=== PATIENT | female | born 1960 | race Caucasian/White ===

== ENCOUNTER 2016-06-26 13:31 | Emergency (ER) | payer OTHER ==
[2016-06-26 13:43] VITALS: BP 130/67; PULSE 84; TEMP 99.4; BMI 25.7
[2016-06-26] MEDS ORDERED: IBUPROFEN 600 MG TABLET (FP) PO ONE ×2 (15:22→15:23)
--- NOTE | 2016-06-26 15:28 | PDOC ---
History of Present Illness - General Chief Complaint: Sore Throat Stated Complaint: THROAT PAIN Time Seen by Provider: 06/26/16 15:13 History Source: Patient Exam Limitations: No Limitations - History of Present Illness Initial Comments: 06/26/16 15:23 Chief complaint: Throat pain Patient is a 55-year-old female with a history of hyperlipidemia and hypertension who states that she has sore throat for 2 days, states she had 103 fever yesterday and felt very weak. Difficulty eating but she can drink and swallow pills. Patient last took Tylenol at 5:30 this morning and has a temperature of 99.4 and a heart rate of 84. No cough or runny nose GENERAL/CONSTITUTIONAL: +fever, weakness. :dizziness HEAD, EYES, EARS, NOSE AND THROAT: No change in vision. No ear pain or discharge. +sore throat. CARDIOVASCULAR: No chest pain RESPIRATORY: No shortness of breath or cough GASTROINTESTINAL: No pain, nausea, vomiting, diarrhea or constipation GENITOURINARY: No dysuria MUSCULOSKELETAL: No neck or back pain SKIN: No rash NEUROLOGIC: No headache, vertigo, loss of consciousness, or loss of sensation. GENERAL: The patient is awake, alert, and fully oriented, in no acute distress. HEAD: Normal with no signs of trauma. EYES: Pupils equal, round and reactive to light, sclera anicteric, conjunctiva clear. ENT: pharynx: +erythema, no exudate, uvula midline, no signs of abscess NECK: supple CHEST: clear, nontender, rr ABD: soft, nontender EXTREMITIES: Normal range of motion, no edema. NEUROLOGICAL: Normal speech, normal gait. SKIN: Warm, Dry Past History - Past Medical History Allergies/Adverse Reactions: Allergies Allergy/AdvReac Type Severity Reaction Status Date / Time No Known Allergies Allergy Verified 06/26/16 13:43 Home Medications: Ambulatory Orders Citalopram Hydrobromide [Celexa -] 20 mg PO DAILY 05/21/14 Loratadine [Claritin -] 10 mg PO DAILY 05/21/14 Lovastatin 20 mg PO DAILY 05/21/14 Metoprolol Succinate [Toprol Xl -] 25 mg PO BID 01/06/15 Amoxicillin - [Amoxicillin 875mg Tablet -] 875 mg PO BID #20 tablet 06/26/16 Atorvastatin Calcium 20 mg PO ASDIR 06/26/16 HTN: Yes Hypercholesterolemia: Yes Suicide Attempt (Hx): No - Immunization History Immunization Up to Date: Yes - Psycho/Social/Smoking Cessation Hx Anxiety: No Suicidal Ideation: No Smoking History: Never smoked Have you smoked in the past 12 months: No Number of Cigarettes Smoked Daily: 0 Hx Alcohol Use: No Drug/Substance Use Hx: No Substance Use Type: None *Physical Exam - Vital Signs Last Vital Signs Temp Pulse Resp BP Pulse Ox 99.4 F 84 20 130/67 100 06/26/16 13:40 06/26/16 13:40 06/26/16 13:40 06/26/16 13:40 06/26/16 13:40 Medical Decision Making - Medical Decision Making 06/26/16 15:26 Patient with sore throat, mild erythema, fever yesterday, no fever now, we will treat given clinical picture, no signs of abscess patient has normal voice does not appeal acutely ill. Discussed issues, findings, results, applicable medications and treatments and follow-up. All these were understood and all questions were answered *DC/Admit/Observation/Transfer Diagnosis at time of Disposition: Pharyngitis Qualifiers: Pharyngitis/tonsillitis etiology: unspecified etiology Qualified Code(s): J02.9 - Acute pharyngitis, unspecified - Discharge Dispostion Disposition: HOME Condition at time of disposition: Stable Admit: No - Prescriptions Prescriptions: Amoxicillin - [Amoxicillin 875mg Tablet -] 875 mg PO BID #20 tablet - Referrals Referrals: Mike Shepard MD [Primary Care Provider] - Kyle Dominguez MD [Staff Physician] - - Patient Instructions Printed Discharge Instructions: DI for Pharyngitis/Tonsillopharyngitis -- Adult Additional Instructions: Drink 2-3 L of water daily Take the amoxicillin one tablet every 12 hours for 10 days, make sure you take it for the time clerk do not stop an early even if you feel better Take Tylenol 650 mg every 4 hours or Motrin 600 mg every 6 hours for fever and pain Return to the nearest ER if short of breath, unable to swallow or feeling sicker Followup with your doctor in one to 2 days
== END 2016-06-26 15:32 | disposition home or self-care (01) ==
LOC: JERFT 13:31
DX: J02.9 Acute pharyngitis, unspecified (principal)
CPT/HCPCS: 99281-25

== ENCOUNTER 2017-10-07 09:12 | Emergency (ER) | payer OTHER ==
[2017-10-07 09:17] VITALS: BP 137/88; PULSE 67; TEMP 99; BMI 27.4
--- NOTE | 2017-10-07 09:36 | PDOC ---
History of Present Illness - General Chief Complaint: Eye Problem Stated Complaint: EYE PROBLEM Time Seen by Provider: 10/07/17 09:32 History Source: Patient Exam Limitations: Clinical Condition - History of Present Illness Initial Comments: 10/07/17 09:37 Patient with history of hypertension present with complain of redness and pain to left eye upon wake this morning. Patient denies trauma or injury to left eye. Patient wear corrective glasses but no contact lenses. She reported she was seen by ophthalmology 2 years ago and was told there was some sort of leakage inside the eye and had no follow-up care. Patient reported mild blurry vision. Patient also report 5 days history of intermittent headaches. Denies any other symptoms Timing/Duration: 24 hours Past History - Past Medical History Allergies/Adverse Reactions: Allergies Allergy/AdvReac Type Severity Reaction Status Date / Time No Known Allergies Allergy Verified 10/07/17 09:17 Home Medications: Ambulatory Orders Citalopram Hydrobromide [Celexa -] 20 mg PO DAILY 05/21/14 Loratadine [Claritin -] 10 mg PO DAILY 05/21/14 Lovastatin 20 mg PO DAILY 05/21/14 Metoprolol Succinate [Toprol Xl -] 25 mg PO BID 01/06/15 Amoxicillin - [Amoxicillin 875mg Tablet -] 875 mg PO BID #20 tablet 06/26/16 Atorvastatin Calcium 20 mg PO ASDIR 06/26/16 Ofloxacin 0.3% Ophth Soln [Ocuflox -] 2 drop OP Q6H 5 Days #1 bottle 10/07/17 Sumatriptan Succinate [Imitrex] 25 mg PO Q8H PRN #12 tablet 10/07/17 COPD: No HTN: Yes Hypercholesterolemia: Yes - Immunization History Immunization Up to Date: Yes - Suicide/Smoking/Psychosocial Hx Smoking History: Never smoked Have you smoked in the past 12 months: No Number of Cigarettes Smoked Daily: 0 Hx Alcohol Use: No Drug/Substance Use Hx: No Substance Use Type: None Review of Systems - Review of Systems Able to Perform ROS?: Yes Is the patient limited [place] proficient: No Constitutional: No: Chills, Diaphoresis, Fever, Loss of Appetite, Malaise, Night Sweats, Weakness, Weight Stable, Unintentional Wgt. Loss, Unexplained wgt Loss, Other HEENTM: Yes: Symptoms Reported, See HPI, Eye Pain (left eye), Blurred Vision ( left eye). No: Tearing, Recent change in vision, Double Vision, Cataracts, Ear Pain, Ocular Prothesis, Ear Discharge, Nose Pain, Nose Congestion, Tinnitus, Nose Bleeding, Hearing Loss, Throat Pain, Throat Swelling, Mouth Pain, Dental Problems, Difficulty Swallowing, Mouth Swelling, Other Respiratory: No: Cough, Orthopnea, Shortness of Breath, SOB with Exertion, SOB at Rest, Stridor, Wheezing, Productive cough, Hemoptysis, Other Cardiac (ROS): No: Chest Pain, Edema, Irregular Heart Rate, Lightheadedness, Palpitations, Syncope, Chest Tightness, Other ABD/GI: No: Abdominal Distended, Abd. Pain w/ defecation, Blood Streaked Bowels , Constipated, Diarrhea, Difficulty Swallowing, Nausea, Poor Appetite, Poor Fluid Intake, Rectal Bleeding, Vomiting, Indigestion, Abdominal cramping, Tarry Stools, Other Musculoskeletal: No: Back Pain, Gout, Joint Pain, Joint Swelling, Muscle Pain, Muscle Weakness, Neck Pain, Joint Stiffness, Other Integumentary: No: Bruising, Change in Color, Change in Hair/Nails, Dryness, Erythema, Flushing, Lesions, Lumps, Pallor, Pruritus, Rash, Sweating, Other All Other Systems: Reviewed and Negative *Physical Exam - Vital Signs Last Vital Signs Temp Pulse Resp BP Pulse Ox 99 F 67 18 137/88 99 10/07/17 09:14 10/07/17 09:14 10/07/17 09:14 10/07/17 09:14 10/07/17 09:14 - Physical Exam Comments: 10/07/17 09:40 GENERAL: Well developed, well nourished. Awake and alert. No acute distress. HEENT: Moderately injected left conjunctiva. Right conjunctiva normal.Normocephalic, atraumatic. PERRLA, EOMI. Sclera are non-icteric. Moist mucous membranes. Oropharynx is clear. NECK: Supple. Full ROM. No JVD. Carotid pulses 2+ and symmetric, without bruits. No thyromegaly. No lymphadenopathy. CARDIOVASCULAR: Regular rate and rhythm. No murmurs, rubs, or gallops. Distal pulses are 2+ and symmetric. PULMONARY: No evidence of respiratory distress. Lungs clear to auscultation bilaterally. No wheezing, rales or rhonchi. ABDOMINAL: Soft. Non-tender. Non-distended. No rebound or guarding. No organomegaly. Normoactive bowel sounds. MUSCULOSKELETAL Normal range of motion at all joints. No bony deformities or tenderness. No CVA tenderness. EXTREMITIES: No cyanosis. No clubbing. No edema. No calf tenderness. SKIN: Warm and dry. Normal capillary refill. No rashes. No jaundice. NEUROLOGICAL: Alert, awake, appropriate. Cranial nerves 2-12 intact. No deficits to light touch and temperature in face, upper extremities and lower extremities. No motor deficits in the in face, upper extremities and lower extremities. Normoreflexic in the upper and lower extremities. Normal speech. Toes are down- going bilaterally. Gait is normal without ataxia. PSYCHIATRIC: Cooperative. Good eye contact. Appropriate mood and affect. General Appearance: Yes: Nourished, Appropriately Dressed. No: Apparent Distress Medical Decision Making - Medical Decision Making 10/07/17 09:41 Patient with history of hypertension on meds present with complain of redness and pain in left eye with this morning. Patient also with complain of intermittent headache. Exam shows moderate injected left conjunctiva. Patient will be treated for conjunctivitis with cluster headache with ophthalmology follow-up *DC/Admit/Observation/Transfer Diagnosis at time of Disposition: Cluster headache Qualifiers: Headache chronicity pattern: episodic headache Intractability: not intractable Qualified Code(s): G44.019 - Episodic cluster headache, not intractable Conjunctivitis Qualifiers: Conjunctivitis type: acute Acute conjunctivitis type: unspecified Laterality: left Qualified Code(s): H10.32 - Unspecified acute conjunctivitis, left eye - Discharge Dispostion Disposition: HOME Condition at time of disposition: Stable - Prescriptions Prescriptions: Ofloxacin 0.3% Ophth Soln [Ocuflox -] 2 drop OP Q6H 5 Days #1 bottle Sumatriptan Succinate [Imitrex] 25 mg PO Q8H PRN #12 tablet PRN Reason: eye pain and headache - Referrals Referrals: Mike Shepard MD [Primary Care Provider] - Paty Ashraf MD [Staff Physician] - - Patient Instructions Printed Discharge Instructions: Cluster Headache Additional Instructions: Take medications as prescribed. Follow-up with ophthalmology as soon as possible - Post Discharge Activity
== END 2017-10-07 09:38 | disposition home or self-care (01) ==
LOC: JERFT 09:12
DX: G44.019 Episodic cluster headache, not intractable (principal); H10.32 Unspecified acute conjunctivitis, left eye
CPT/HCPCS: 99281-25

== ENCOUNTER 2018-03-05 18:54 | Emergency (ER) | payer OTHER ==
--- NOTE | 2018-03-05 19:01 | PDOC ---
Rapid Medical Evaluation Time Seen by Provider: 03/05/18 18:57 Medical Evaluation: Allergies Allergy/AdvReac Type Severity Reaction Status Date / Time No Known Allergies Allergy Verified 10/07/17 09:17 03/05/18 18:57 I have performed a brief in-person evaluation of the patient. The patient presents with a chief complaint of: s/p fall in kitchen, tripped over grandson. Used left arm to break fall. Pertinent physical exam findings. NAD even and unlabored breathing left wrist and hand deformity I have ordered the following. xray and analgesia The patient will proceed to the ED for further evaluation.
[2018-03-05 19:04] VITALS: BMI 26.6
[2018-03-05] MEDS ORDERED: morphine CARPU-JECT 2 MG/1 ML DISP.SYRIN IVPUSH ONE (19:04)
[2018-03-05] MEDS ORDERED: morphine CARPU-JECT 2 MG/1 ML DISP.SYRIN IM ONE (19:07)
[2018-03-05] MEDS ORDERED: MORPHINE SULFATE 2 MG/ML VIAL ONE (19:09)
--- NOTE | 2018-03-05 19:10 | PDOC ---
History of Present Illness - General Chief Complaint: Pain, Acute Stated Complaint: L HAND FRACTURE Time Seen by Provider: 03/05/18 18:57 - History of Present Illness Initial Comments: 03/05/18 19:06 Ms. Miller is a 57 yo female w/ pmh of osteopenia, HTN, and HLD who presents with arm pain after mechanical fall when she tripped over grandson earlier today in her kitchen and used left arm to break fall. Patient currently experiencing significant wrist pain w/out radiation. Reports pain is localized to wrist only. Given 2mg morphine in fast track. Denies any other symptoms. The patient denies chest pain, shortness of breath, headache and dizziness. Denies fever, chills, nausea, vomit, diarrhea and constipation. Denies dysuria, frequency, urgency and hematuria. Past History - Past Medical History Allergies/Adverse Reactions: Allergies Allergy/AdvReac Type Severity Reaction Status Date / Time No Known Allergies Allergy Verified 03/05/18 19:00 Home Medications: Ambulatory Orders Citalopram Hydrobromide [Celexa -] 20 mg PO DAILY 05/21/14 Loratadine [Claritin -] 10 mg PO DAILY 05/21/14 Lovastatin 20 mg PO DAILY 05/21/14 Metoprolol Succinate [Toprol Xl -] 25 mg PO BID 01/06/15 Atorvastatin Calcium 20 mg PO ASDIR 06/26/16 Ofloxacin 0.3% Ophth Soln [Ocuflox -] 2 drop OP Q6H 5 Days #1 bottle 10/07/17 Sumatriptan Succinate [Imitrex] 25 mg PO Q8H PRN #12 tablet 10/07/17 COPD: No HTN: Yes Hypercholesterolemia: Yes - Immunization History Immunization Up to Date: Yes - Suicide/Smoking/Psychosocial Hx Smoking History: Unknown if ever smoked Have you smoked in the past 12 months: No Number of Cigarettes Smoked Daily: 0 Hx Alcohol Use: No Drug/Substance Use Hx: No Substance Use Type: None Review of Systems - Review of Systems Comments:: 03/05/18 19:09 GENERAL/CONSTITUTIONAL: No fever or chills. No weakness. HEAD, EYES, EARS, NOSE AND THROAT: No change in vision. No ear pain or discharge. No sore throat. CARDIOVASCULAR: No chest pain or shortness of breath RESPIRATORY: No cough, wheezing, or hemoptysis. GASTROINTESTINAL: No nausea, vomiting, diarrhea or constipation. GENITOURINARY: No dysuria, frequency, or change in urination. MUSCULOSKELETAL: +Left wrist pain as described. SKIN: No rash NEUROLOGIC: No headache, vertigo, loss of consciousness, or change in strength/ sensation. ENDOCRINE: No increased thirst. No abnormal weight change HEMATOLOGIC/LYMPHATIC: No anemia, easy bleeding, or history of blood clots. ALLERGIC/IMMUNOLOGIC: No hives or skin allergy. *Physical Exam - Vital Signs Last Vital Signs Temp Pulse Resp BP Pulse Ox 112 H 20 00/00 L 99 03/05/18 19:02 03/05/18 19:02 03/05/18 19:02 03/05/18 19:02 - Physical Exam Comments: 03/05/18 19:09 GENERAL: Awake, alert, and fully oriented, in no acute distress HEAD: No signs of trauma, normocephalic, atraumatic EYES: PERRLA, EOMI, sclera anicteric, conjunctiva clear ENT: Auricles normal inspection, hearing grossly normal, nares patent, oropharynx clear without exudates. Moist mucosa NECK: Normal ROM, supple, no lymphadenopathy, JVD, or masses LUNGS: No distress, speaks full sentences, clear to auscultation bilaterally HEART: Regular rate and rhythm, normal S1 and S2, no murmurs, rubs or gallops, peripheral pulses normal and equal bilaterally. ABDOMEN: Soft, nontender, normoactive bowel sounds. No guarding, no rebound. No masses EXTREMITIES: +Left wrist TTP and swollen. Neurovascularly intact. NEUROLOGICAL: Cranial nerves II through XII grossly intact. Normal speech, normal gait, no focal sensorimotor deficits SKIN: Warm, Dry, normal turgor, no rashes or lesions noted. Moderate Sedation - Procedure Monitoring Vital Signs: Procedure Monitoring Vital Signs Temperature Pulse Rate 112 H 03/05/18 19:02 Respiratory Rate 20 03/05/18 19:02 Blood Pressure 00/00 L 03/05/18 19:02 O2 Sat by Pulse Oximetry (%) 99 03/05/18 19:02 Procedures - Joint Reduction Left Joint Reduction Site: left: Radial Head Pre-Procedure NV Exam: normal Conscious Sedation: No Reduction Attempts: 1 Anesthetic: 2% Lidocaine Amount (mL): 3 Procedure: Traction Counter Traction Post-Procedure NV Exam: normal Complications: No Post Joint Reduction Film: joint reduced Splint: Yes Immobilized: Yes Medical Decision Making - Medical Decision Making 03/05/18 19:29 Ms. Miller is a 57 yo female w/ pmh as described who presents for evaluation of symptoms concerning for fracture vs. sprain. XR confirmed radial head fracture. Neurovascularly intact at this time. Will reduce and re-examine with plain films with likely outpatient orthopedic f/u. 03/05/18 19:58 Patient fracture reduced w/out difficulty using 3ml 2% Lidocaine for nerve block and traction. Patient neurovasuclarly intact following procedure. No complications. Pain improved. Repeat films ordered. 03/05/18 20:09 Radius re-approximated successfully on repeat films. Will discharge with ortho follow-up. Patient verbalized understanding and will comply. *DC/Admit/Observation/Transfer Diagnosis at time of Disposition: Radius fracture Qualifiers: Encounter type: initial encounter Radius location: neck Fracture type: closed Fracture alignment: displaced Laterality: left Qualified Code(s): S52.132A - Displaced fracture of neck of left radius, initial encounter for closed fracture - Discharge Dispostion Disposition: HOME - Referrals Referrals: Norberto Velazquez MD [Staff Physician] - - Patient Instructions Printed Discharge Instructions: DI for Distal Radius Fracture Additional Instructions: You were evaluated today in the ER after your fall and found to have a fracture of your radius on Xray. Your fracture was reduced and a splint was applied. Please follow-up with orthopedics using attached information. Return to ER if any fever, chills, increase in pain not controllable with over the counter motrin or tylenol, or other concerning symptoms. - Post Discharge Activity
[2018-03-05] MEDS ORDERED: LIDOCAINE HCL 2% (50ML VIAL) SQ ONE (19:19)
[2018-03-05] MEDS ORDERED: LIDOCAINE HCL 2% (20ML MULTI-DOSE VIAL) NR ONE (19:24)
--- NOTE | 2018-03-05 19:33 | PDOC ---
Attending Attestation - HPI HPI: 03/05/18 19:55 The patient is a 57 year old female with a past medical history of hypertension and hyperlipidemia who presents to the emergency department for evaluation of sudden onset left wrist pain s/p mechanical fall. Patient reports moderate left wrist pain after tripping over her grandson and landing on her outstretched left arm. She denies head strike and loss of consciousness. Patient denies use of blood thinners. She denies any proceeding symptoms, chest pain, or shortness of breath. - Physicial Exam PE: I agree with the findings of the resident's physical exam. - Medical Decision Making Documentation prepared by Tyler Munguia, acting as medical claims analyst for Melinda Lawrence DO. <Tyler Munguia - Last Filed: 03/05/18 19:55> - Resident Resident Name: Franck Oviedo - ED Attending Attestation I have performed the following: I have examined & evaluated the patient, The case was reviewed & discussed with the resident, I agree w/resident's findings & plan - Medical Decision Making 03/05/18 20:01 57-year-old female status post mechanical fall with sudden onset of pain to the left wrist X-rays were consistent with impacted and displaced distal radius fracture Local infiltration anesthesia as well as closed reduction with traction performed by the resident under my supervision Patient neurovascularly intact postprocedure, volar splint placed and postreduction films obtained Plan for discharge home with prompt outpatient orthopedic follow-up <Melinda Lawrence - Last Filed: 03/05/18 20:02>
[2018-03-05 20:26] VITALS: BP 133/85; PULSE 77; TEMP 98
== END 2018-03-05 20:48 | disposition home or self-care (01) ==
LOC: JER 18:54
PROC: 3E023NZ Introduction of Analgesics, Hypnotics, Sedatives into Muscle, Percutaneous Approach (ICD-10-PCS; principal; 2018-03-05)
PROC: 0PSJXZZ Reposition Left Radius, External Approach (ICD-10-PCS; 2018-03-05)
PROC: 0PSLXZZ Reposition Left Ulna, External Approach (ICD-10-PCS; 2018-03-05)
PROC: 2W3DX1Z Immobilization of Left Lower Arm using Splint (ICD-10-PCS; 2018-03-05)
DX: S52.592A Other fractures of lower end of left radius, initial encounter for closed fracture (principal); S52.612A Displaced fracture of left ulna styloid process, initial encounter for closed fracture; W03.XXXA Other fall on same level due to collision with another person, initial encounter; Y93.89 Activity, other specified; Y92.030 Kitchen in apartment as the place of occurrence of the external cause; Y99.8 Other external cause status; E78.5 Hyperlipidemia, unspecified
CPT/HCPCS: 25605; 29125; 73090-TC-LT-FY; 73110-TC-LR-FY; 73130-TC-LT-FY; 96372; 99282-25

== ENCOUNTER 2018-03-07 11:30 | Emergency (ER) | payer OTHER ==
[2018-03-07 11:47] VITALS: BP 145/89; PULSE 60; TEMP 98.1; BMI 27.6
--- NOTE | 2018-03-07 12:19 | PDOC ---
History of Present Illness - General Chief Complaint: Revisit,Wound Recheck Stated Complaint: LEFT HAND INJURY Time Seen by Provider: 03/07/18 12:17 History Source: Patient Exam Limitations: No Limitations - History of Present Illness Initial Comments: 03/07/18 13:10 Patient patient is a 57-year-old female who presents to the ER for evaluation of her left arm splint. Patient was seen in our emergency department on 03/05/17 under the name Angela Zach. She was diagnosed with a left arm fracture and had a splint placed. Today she states that this point feels very tight and she has numbness and tingling to her first 3 fingers. Denies pain to the forearm, weakness to the extremity, and fever. Past History - Travel Traveled outside of the country in the last 30 days: No Close contact w/someone who was outside of country & ill: No - Past Medical History Allergies/Adverse Reactions: Allergies Allergy/AdvReac Type Severity Reaction Status Date / Time rodriguez Allergy Verified 03/07/18 11:47 Home Medications: Ambulatory Orders Citalopram Hydrobromide [Celexa -] 10 mg PO DAILY 03/07/18 Metoprolol Succinate 25 mg PO ASDIR 03/07/18 Ondansetron [Zofran Odt -] 4 mg SL TID #10 od.tablet 03/07/18 Oxycodone HCl/Acetaminophen [Percocet 5-325 mg Tablet] 1 tab PO Q6H PRN #15 tablet MDD 4 03/07/18 COPD: No CHF: No HTN: Yes - Immunization History Immunization Up to Date: No - Suicide/Smoking/Psychosocial Hx Smoking History: Never smoked Have you smoked in the past 12 months: No Information on smoking cessation initiated: No Hx Alcohol Use: No Drug/Substance Use Hx: No Review of Systems - Review of Systems Able to Perform ROS?: Yes Comments:: 03/07/18 12:18 CONSTITUTIONAL: Absent: fever, chills, diaphoresis, generalized weakness, malaise, loss of appetite HEENT: Absent: rhinorrhea, nasal congestion, throat pain, throat swelling, difficulty swallowing, mouth swelling, ear pain, eye pain, visual Changes CARDIOVASCULAR: Absent: chest pain, loss of consciousness, palpitations, irregular heart rate, peripheral edema RESPIRATORY: Absent: cough, shortness of breath, dyspnea with exertion, orthopnea, wheezing, stridor, hemoptysis GASTROINTESTINAL: Absent: abdominal pain, abdominal distension, nausea, vomiting, diarrhea, constipation, melena, hematochezia GENITOURINARY: Absent: dysuria, frequency, urgency, hesitancy, hematuria, flank pain, genital pain MUSCULOSKELETAL: Present: L arm pain with associated numbness to fingers Absent: myalgia, arthralgia, joint swelling SKIN: Absent: rash, itching, pallor HEMATOLOGIC/IMMUNOLOGIC: Absent: easy bleeding, easy bruising, lymphadenopathy, frequent infections ENDOCRINE: Absent: unexplained weight gain, unexplained weight loss, heat intolerance, cold intolerance NEUROLOGIC: Absent: headache, focal weakness or paresthesias, dizziness, unsteady gait, seizure, mental status changes, bladder or bowel incontinence PSYCHIATRIC: Absent: anxiety, depression, suicidal or homicidal ideation, hallucinations. Is the patient limited Yi proficient: No *Physical Exam - Vital Signs Last Vital Signs Temp Pulse Resp BP Pulse Ox 98.1 F 60 16 145/89 99 03/07/18 11:43 03/07/18 11:43 03/07/18 11:43 03/07/18 11:43 03/07/18 11:43 - Physical Exam Comments: 03/07/18 12:19 GENERAL: Well developed, well nourished. Awake and alert. No acute distress. MUSCULOSKELETAL Pt in volar short arm splint on L. No pain to arm with passive flexion and extension of fingers. Pt reports numbness when tested to the L 1st, 2nd, 3rd, and half of the 4th digit. Cap refill less than 3 sec in all fingers on the L. Normal range of motion at all other joints. No CVA tenderness. EXTREMITIES: No cyanosis. No clubbing. No edema. No calf tenderness. SKIN: Warm and dry. Normal capillary refill. No rashes. No jaundice. NEUROLOGICAL: Alert, awake, appropriate. Cranial nerves 2-12 intact. No deficits to light touch and temperature in face, upper extremities and lower extremities. No motor deficits in the in face, upper extremities and lower extremities. Normoreflexic in the upper and lower extremities. Normal speech. Toes are down- going bilaterally. Gait is normal without ataxia. PSYCHIATRIC: Cooperative. Good eye contact. Appropriate mood and affect. Moderate Sedation - Procedure Monitoring Vital Signs: Procedure Monitoring Vital Signs Temperature 98.1 F 03/07/18 11:43 Pulse Rate 60 03/07/18 11:43 Respiratory Rate 16 03/07/18 11:43 Blood Pressure 145/89 03/07/18 11:43 O2 Sat by Pulse Oximetry (%) 99 03/07/18 11:43 Medical Decision Making - Medical Decision Making 03/07/18 13:15 Patient is a 57-year-old female who presents to the ER with pain to her left arm wear her splint is status post reduction for a fracture of the distal radius on 03/05/79. On exam patient with numbness to the first through third digits and half of the fourth digit on the left-hand side. Consistent with carpal tunnel. No pain with passive flexion and extension. Repeat x-ray shows a well reduced distal radius fracture with no step-off. Splint appears tight. Carlitos wrap unwrapped and be placed for comfort. Patient given 2 different Ortho referrals as the last referral did not take her insurance. Discharge home I discussed the physical exam findings, ancillary test results and final diagnoses with the patient. I answered all of the patient's questions. The patient was satisfied with the care received and felt comfortable with the discharge plan and treatment plan. The Patient agrees to follow up with the primary care physician/specialist within 24-72 hours. Return precautions were given. *DC/Admit/Observation/Transfer Diagnosis at time of Disposition: Carpal tunnel syndrome of left wrist Distal radius fracture, left Qualifiers: Encounter type: subsequent encounter Fracture type: closed Fracture morphology : Colles' Fracture healing: with routine healing Qualified Code(s): S52.532D - Colles' fracture of left radius, subsequent encounter for closed fracture with routine healing - Discharge Dispostion Disposition: HOME Condition at time of disposition: Stable Decision to Admit order: No - Prescriptions Prescriptions: Ondansetron [Zofran Odt -] 4 mg SL TID #10 od.tablet Oxycodone HCl/Acetaminophen [Percocet 5-325 mg Tablet] 1 tab PO Q6H PRN #15 tablet MDD 4 PRN Reason: Pain - Referrals Referrals: Mike Shepard MD [Primary Care Provider] - Isak Heaton MD [Staff Physician] - Royal Desouza DO [Staff Physician] - - Patient Instructions Printed Discharge Instructions: DI for Carpal Tunnel Syndrome Additional Instructions: You had your splint evaluated today. It was too tight. It was loosened. Your numbness and tingling is most likely from carpal tunnel as a result of the fracture. Please keep the arm elevated as if you're saying the Pledge of Allegiance. This should help reduce swelling. He may take Percocet every 6 hours as needed for pain. Do not drink or drive after taking this medication as it may make you sleepy. Percocet can also making him nauseous. If you feel nauseous this please take the Zofran. He may take this every 8 hours as needed. Please follow-up with orthopedics. A new referral has been given to you. Return to the ER for any new or worsening symptoms. - Post Discharge Activity Forms/Work/School Notes: Back to Work
[2018-03-07] MEDS ORDERED: ONDANSETRON *ODT* 4 MG TABLET SL ONE (12:59)
[2018-03-07] MEDS ORDERED: ONDANSETRON *ODT* 4 MG TABLET ONE (13:02)
== END 2018-03-07 13:11 | disposition home or self-care (01) ==
LOC: MERGE 11:30 → JERFT 11:30
DX: G56.02 Carpal tunnel syndrome, left upper limb (principal); S52.532D Colles' fracture of left radius, subsequent encounter for closed fracture with routine healing; X58.XXXA Exposure to other specified factors, initial encounter; Y93.89 Activity, other specified; Y92.89 Other specified places as the place of occurrence of the external cause
CPT/HCPCS: 73110-TC-LR-FY; 73130-TC-LT-FY; 99281-25; Q0162

== ENCOUNTER 2018-04-14 12:28 | Emergency (ER) | payer OTHER ==
[2018-04-14 12:52] VITALS: BMI 27.4
--- NOTE | 2018-04-14 13:26 | PDOC ---
History of Present Illness - General Chief Complaint: Lightheaded Stated Complaint: HYPERTENSION - History of Present Illness Initial Comments: 04/14/18 13:27 57 yo female with PMH HTN, HLD presents with complaint of lightheadedness. She states that this morning she woke up and felt lightheaded and states she was seeing some black spots occasionally and had some nausea though she denies any vomiting or diarrhea. She states that she normally makes sure to drink plenty of water and usually consumes at least 7 bottles per day, usually 8. However yesterday she does endorse that she only had one or two bottles of water. She denies any fevers, or chills, chest pain, SOB, weakness. Past History - Past Medical History Allergies/Adverse Reactions: Allergies Allergy/AdvReac Type Severity Reaction Status Date / Time michael Allergy Verified 04/14/18 12:46 Home Medications: Ambulatory Orders Citalopram Hydrobromide [Celexa -] 20 mg PO DAILY 05/21/14 Loratadine [Claritin -] 10 mg PO DAILY 05/21/14 Atorvastatin Calcium 20 mg PO ASDIR 06/26/16 Sumatriptan Succinate [Imitrex] 25 mg PO Q8H PRN #12 tablet 10/07/17 Metoprolol Succinate 25 mg PO DAILY 03/07/18 COPD: No CHF: No HTN: Yes Hypercholesterolemia: Yes - Immunization History Immunization Up to Date: No - Suicide/Smoking/Psychosocial Hx Smoking History: Never smoked Have you smoked in the past 12 months: No Number of Cigarettes Smoked Daily: 0 Hx Alcohol Use: No Drug/Substance Use Hx: No Substance Use Type: None Review of Systems - Review of Systems Able to Perform ROS?: Yes Is the patient limited Green[place]ic proficient: No Constitutional: No: Chills, Fever, Weakness HEENTM: No: Blurred Vision Respiratory: No: Cough, Shortness of Breath Cardiac (ROS): No: Chest Pain, Irregular Heart Rate, Syncope ABD/GI: Yes: Nausea. No: Abdominal Distended, Diarrhea : No: Burning, Dysuria, Frequency, Hematuria Musculoskeletal: No: Back Pain, Muscle Weakness Integumentary: No: Flushing Neurological: No: Headache, Paresthesia, Tingling *Physical Exam - Vital Signs Last Vital Signs Temp Pulse Resp BP Pulse Ox 98.5 F 62 18 134/74 100 04/14/18 12:51 04/14/18 12:51 04/14/18 12:51 04/14/18 12:51 04/14/18 12:51 - Physical Exam Comments: 04/14/18 13:27 GEN: A&O, no acute distress HEENT: dry mucus membranes NECK: supple HEART: RRR, no murmurs LUNGS: CTA b/l ABDOMEN: Soft, nontender EXTREMITIES: no edema or calf tenderness Moderate Sedation - Procedure Monitoring Vital Signs: Procedure Monitoring Vital Signs Temperature 98.5 F 04/14/18 12:51 Pulse Rate 62 04/14/18 12:51 Respiratory Rate 18 04/14/18 12:51 Blood Pressure 134/74 04/14/18 12:51 O2 Sat by Pulse Oximetry (%) 100 04/14/18 12:51 ED Treatment Course - LABORATORY CBC & Chemistry Diagram: 04/14/18 13:55 04/14/18 13:55 Medical Decision Making - Medical Decision Making 04/14/18 13:46 57 yo female with HTN and HLD presents with some lightheadedness and nausea which began this morning. She does endorse that yesterday she drank much less water than she normally does. She checked her b.p at home and states it was 140s /90 and spoke to her son who is a physician in her home country and he recommended she be evaluated in the E.R. She initially presented to Urgent care who did an EKG and recommended she be seen in the ER for her blood pressure which was noted to be 150s/80s there and improved to 120s/80s. CBC, BMP, 1L fluids, EKG, influenza swab and reassess 04/14/18 16:03 Orthostatic vital signs noted with decrease >10 from supine to seated and seated to standing, with associated increased in HR respectively. Pt states she is feeling better through most of 1L of fluids. Will complete fluid bolus and reassess. Pt can likely d.c with encouragement for PO hydration. *DC/Admit/Observation/Transfer Diagnosis at time of Disposition: Lightheadedness - Discharge Dispostion Disposition: HOME Condition at time of disposition: Stable Decision to Admit order: No - Referrals Referrals: Mike Shepard MD [Primary Care Provider] - - Patient Instructions Printed Discharge Instructions: DI for Dizziness-Nonvertigo, DI for Dehydration -- Adult Additional Instructions: You were seen in the emergency room for lightheadedness. Your blood pressure was noted to be okay and your lab work was normal. You were given a liter of fluids and are feeling much better. At this point you are medically safe for discharge. You should make sure to drink plenty of fluids and stay adequately hydrated. You should follow up with your primary care physician within 1 week of discharge from the ER. If you have any loss of consciousness, worsening weakness, or any other concerning symptoms you should be evaluated by your doctor or return to the emergency department. - Post Discharge Activity
[2018-04-14] MEDS ORDERED: LACTATED RINGERS SOLUTION 1000 ML INFUS.BAG IV ONE (13:51)
[2018-04-14 14:30] LABS: HEMATOCRIT 36.3 % (32.4-45.2); HEMOGLOBIN 12.6 GM/dL (10.7-15.3); MCH 31.3 pg (25.7-33.7); MCHC 34.7 g/dl (32.0-36.0); MEAN CELL VOLUME 90.1 fl (80-96); MEAN PLT VOLUME 9.5 fl (7.5-11.1); PLATELET COUNT 231 K/MM3 (134-434); RBC 4.03 M/mm3 (3.60-5.2); RDW 13.3 % (11.6-15.6)
[2018-04-14 14:47] LABS: ANION GAP 3 MMOL/L (8-16); BLOOD UREA NITROGEN 17 mg/dL (7-18); CHLORIDE 107 mmol/L (98-107); CO2 28 mmol/L (21-32); CREATININE 0.7 mg/dL (0.55-1.3); GLUCOSE,RANDOM 87 mg/dL (74-106); MAGNESIUM 2.3 mg/dL (1.8-2.4); POTASSIUM 4.6 mmol/L (3.5-5.1); SODIUM 138 mmol/L (136-145)
--- NOTE | 2018-04-14 16:44 | PDOC ---
Attending Attestation - Resident Resident Name: Naun Perez - ED Attending Attestation I have performed the following: I have examined & evaluated the patient, The case was reviewed & discussed with the resident, I agree w/resident's findings & plan, Exceptions are as noted - HPI HPI: 04/14/18 16:50 The patient is a 57 year old female with a PMH of HTN and HLD who presents with lightheadedness since this morning when she stands up. Patient reports seeing some black spots when she had lightheadness but denies LOC. Denies falling. Denies associated CP, diaphoresis, nausea, SOB, palpitaitons. Patient states she only drank 2 bottles of water yesterday because she was busy cleaning and at restoration. Normally she drinks 6-7 bottles of water daily. Denies fevers, chills, urinary symptoms. Allergies: cherries Surgeries: None reported Social Hx: No reported alcohol, drug or cigarette use. PCP: Dr. Mike Shepard - Physicial Exam PE: 04/14/18 16:55 GENERAL: Awake, alert, and fully oriented, in no acute distress HEAD: No signs of trauma EYES: PERRLA, EOMI, sclera anicteric, conjunctiva clear ENT: Auricles normal inspection, hearing grossly normal, nares patent, oropharynx clear without exudates. Moist mucosa NECK: Normal ROM, supple, no lymphadenopathy, JVD, or masses LUNGS: Breath sounds equal, clear to auscultation bilaterally. No wheezes, and no crackles HEART: Regular rate and rhythm, normal S1 and S2, no murmurs, rubs or gallops ABDOMEN: Soft, nontender, normoactive bowel sounds. No guarding, no rebound. No masses EXTREMITIES: Normal range of motion, no edema. No clubbing or cyanosis. No cords, erythema, or tenderness NEUROLOGICAL: Normal speech, cranial nerves intact, 5/5 strength in all 4 extremities, normal sensation to light touch in all 4 extremities, normal gait SKIN: Warm, Dry, normal turgor, no rashes or lesions noted. Orthostatic vital signs + - Medical Decision Making 04/14/18 17:02 57yo F hx HTN, HL presents to the ED with lightheadedness upon standing. Orthostatic vitals found to be positive. In light of reported decreased water intake, likely dehydration. Labs within normal limits. EKG non ischemic. After 1L NS, pt feeling much better, denies lightheadness. Rpt orthostatics negative. Pt well appearing, requests DC home. I discussed the physical exam findings, ancillary test results and final diagnoses with the patient. I answered all of the patient's questions. The patient was satisfied with the care received and felt comfortable with the discharge plan and treatment plan. The patient will call their primary care physician within 24 hours to arrange follow-up and will return to the Emergency Department with any new, persistent or worsening symptoms. Heart Score/ECG Review #1 04/14/18 17:02 Twelve-lead EKG was performed and reviewed by me. Sinus bradycardia, rate 54. Normal axis. No ST elevations or T-wave inversions.
[2018-04-14 16:55] VITALS: BP 138/78; PULSE 82; TEMP 98
--- NOTE | 2018-04-15 11:54 | EKG ---
Test Reason : Blood Pressure : / mmHG Vent. Rate : 054 BPM Atrial Rate : 054 BPM P-R Int : 160 ms QRS Dur : 068 ms QT Int : 454 ms P-R-T Axes : 043 006 040 degrees QTc Int : 430 ms POOR DATA QUALITY, INTERPRETATION MAY BE ADVERSELY AFFECTED SINUS BRADYCARDIA CANNOT RULE OUT ANTERIOR INFARCT , AGE UNDETERMINED ABNORMAL ECG WHEN COMPARED WITH ECG OF 20-MAY-2014 15:01, NO SIGNIFICANT CHANGE WAS FOUND Confirmed by EAMON CARTER, ROM ([id number]) on 04/15/2018 11:53:47 AM Referred By: Confirmed By:ROM KNUTSON MD
== END 2018-04-14 16:55 | disposition home or self-care (01) ==
LOC: JER 12:28
DX: R42 Dizziness and giddiness (principal); I10 Essential (primary) hypertension; E78.5 Hyperlipidemia, unspecified
CPT/HCPCS: 36415; 80048; 82550; 83735; 84484; 85027; 87804; 93005; 93010; 99283-25